=== PATIENT | male | born 1990 | race Caucasian/White ===

== ENCOUNTER 2017-10-05 00:16 | Inpatient (IN) | payer OTHER ==
[~2017-10-05] VITALS: Ht 175.3 cm; Wt 55.2 kg
[2017-10-05 00:54] LABS: BASOPHIL (%) 2.2 % (0-1); BASOPHIL COUNT 0.1 K/uL (0-0.1); EOSINOPHIL (%) 1.5 % (0-5); EOSINOPHIL COUNT 0.1 K/uL (0-0.3); HEMATOCRIT 44.3 % (38.0-50.0); HEMOGLOBIN 16.2 G/DL (12.5-16.6); IMMATURE GRANULOCYTE (%) 0.2 % (0.0-0.7); LYMPHOCYTE (%) 33.8 % (15-42); MCH 34.5 PG (29.0-34.0); MCHC 36.6 G/DL (30.0-36.0); MCV 94.3 FL (86-99); MONOCYTE COUNT 0.6 K/uL (0-0.8); NEUTROPHIL (%) 52.3 % (45-76); NEUTROPHIL COUNT 3.1 K/uL (1.8-6.4); PLATELET COUNT 205 K/uL (156-360); RBC DIS.WIDTH-CV 11.6 % (11.8-14.6); RBC DIS.WIDTH-SD 40.1 % (39-53); WHITE BLOOD COUNT 5.9 K/uL (4.1-10.2)
[2017-10-05 01:02] LABS: CHLORIDE 102 mEq/L (99-109); POTASSIUM 3.3 mEq/L (3.7-5.4); SODIUM 140 mEq/L (136-147)
[2017-10-05 01:03] LABS: GLUCOSE 110 mg/dL (70-99)
[2017-10-05 01:07] LABS: CREATININE 0.8 mg/dL (0.6-1.3); GFR ESTIMATE (CALCULATED) > 59 mL/min/ (58.99-99999); SERUM ETHYL ALCOHOL 224 mg/dL
[2017-10-05 01:08] LABS: UREA NITROGEN (BUN) 3 mg/dL (9-23)
[2017-10-05 01:29] LABS: PHENCYCLIDINE NEGATIVE (25 ng/mL); THC CANNABINOIDS NEGATIVE (50 ng/mL)
[2017-10-05 01:30] LABS: AMPHETAMINE NEGATIVE (500 ng/mL); BARBITURATES NEGATIVE (200 ng/mL); BENZODIAZEPINES NEGATIVE (150 ng/mL); BUPRENORPHINE NEGATIVE (10 ng/mL); COCAINE NEGATIVE (150 ng/mL); METHADONE NEGATIVE (200 ng/mL); METHAMPHETAMINE NEGATIVE (500 ng/mL); OPIATES (MORPHINE) NEGATIVE (100 ng/mL); OXYCODONE NEGATIVE (100 ng/mL); PROPOXYPHENE NEGATIVE (300 ng/mL); TRICYCLIC ANTIDEPRESSANTS NEGATIVE (300 ng/mL)
[2017-10-05 13:22] VITALS: BP 135/91
[2017-10-05 14:22] VITALS: BP 135/91
[2017-10-05 15:47] VITALS: BP 141/90
[2017-10-06 07:34] VITALS: BP 126/69
[2017-10-06 15:48] VITALS: BP 99/51
[2017-10-06 19:37] VITALS: BP 130/72
[2017-10-07 07:53] VITALS: BP 92/51
[2017-10-07 15:42] VITALS: BP 108/55
[2017-10-08 07:25] VITALS: BP 109/56
[2017-10-08] MEDS ORDERED: MIRTAZAPINE15 MG PO (10:43)
== END 2017-10-08 13:11 | disposition home or self-care (01) | DRG 880 ==
LOC: EME 00:16 → EDOF 11:39 → 1WEST 11:39 → ENRESERV 13:15 → 1WEST 13:16
PROVIDERS: Emergency Medicine
DX: F41.1 Generalized anxiety disorder (principal); F10.129 Alcohol abuse with intoxication, unspecified; R00.0 Tachycardia, unspecified; Y90.7 Blood alcohol level of 200-239 mg/100 ml; G47.00 Insomnia, unspecified; Z68.1 Body mass index [BMI] 19.9 or less, adult; R45.851 Suicidal ideations; F17.200 Nicotine dependence, unspecified, uncomplicated; Z81.8 Family history of other mental and behavioral disorders
CPT/HCPCS: 80048; 85025; 90839; 97150 GO; 97165 GO; 99281; 99285; G0480